=== PATIENT | female | born 1970 | race Caucasian/White ===

== ENCOUNTER 2019-07-26 20:10 | Emergency (ER) | payer MEDICAID ==
[~2019-07-26] VITALS: Ht 157.5 cm; Wt 90.7 kg
[2019-07-26 20:10] VITALS: BP_SYST 161
--- NOTE | 2019-07-26 20:10 | NUR ---
Pt biba to bed 4 for evaluation
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
--- NOTE | 2019-07-26 20:40 | NUR ---
ER at bedside examining patient.
[2019-07-26] MEDS ORDERED: IBUPROFEN 800 MG TABLET PO ONE (21:00)
--- NOTE | 2019-07-26 21:18 | NUR ---
PT TO CT SCAN VIA [facility]
--- NOTE | 2019-07-26 21:36 | NUR ---
PT BACK FROM CT TO BED 4.
--- NOTE | 2019-07-26 21:53 | NUR ---
AWAITING DISPOSITION. PT IS CURRENTLY SLEEPING IN NO DISTRESS.
[2019-07-26 22:50] VITALS: BP_SYST 148
--- NOTE | 2019-07-26 22:50 | NUR ---
Patient given written and verbal discharge instructions and verbalizes understanding. ER DR. THERESA BURROUGHS discussed with patient the results and treatment provided. Patient in stable condition. ID arm band removed. Rx of given. Patient educated on pain management and to follow up with PMD. Pain Scale 0. Opportunity for questions provided and answered. Medication side effect fact sheet provided.
== END 2019-07-26 22:50 | disposition home or self-care (01) ==
LOC: SED 20:10
DX: S16.1XXA Strain of muscle, fascia and tendon at neck level, initial encounter (principal); S46.911A Strain of unspecified muscle, fascia and tendon at shoulder and upper arm level, right arm, initial encounter; S80.02XA Contusion of left knee, initial encounter; S80.01XA Contusion of right knee, initial encounter; F12.90 Cannabis use, unspecified, uncomplicated; F17.290 Nicotine dependence, other tobacco product, uncomplicated; V49.50XA Passenger injured in collision with unspecified motor vehicles in traffic accident, initial encounter; Y93.89 Activity, other specified; Y92.89 Other specified places as the place of occurrence of the external cause; Y99.8 Other external cause status
CPT/HCPCS: 72125-TC; 99284

== ENCOUNTER 2019-07-30 10:09 | Emergency (ER) | payer MEDICAID ==
[~2019-07-30] VITALS: Ht 157.5 cm; Wt 88.5 kg
[2019-07-30 10:22] VITALS: BP_SYST 155
[2019-07-30] MEDS ORDERED: traMADol HCL HCL 50 MG TABLET (ULTRAM) PO ONE (11:00)
[2019-07-30 11:24] VITALS: BP_SYST 148
== END 2019-07-30 11:25 | disposition home or self-care (01) ==
LOC: SED 10:09
DX: S16.1XXA Strain of muscle, fascia and tendon at neck level, initial encounter (principal); S80.10XA Contusion of unspecified lower leg, initial encounter; V49.9XXA Car occupant (driver) (passenger) injured in unspecified traffic accident, initial encounter; Y93.89 Activity, other specified; Y92.413 State road as the place of occurrence of the external cause; Y99.8 Other external cause status
CPT/HCPCS: 73590-TC; 99283